=== PATIENT | female | born 1960 | race Caucasian/White ===

== ENCOUNTER 2022-05-30 09:37 | Day surgery (SDC) | payer BC ==
[~2022-05-30] VITALS: Ht 172.7 cm; Wt 158.8 kg
[2022-05-30] MEDS ORDERED: SEVOFLURANE 15 MIN GAS INH ONE (12:05)
[2022-05-30] MEDS ORDERED: PROPOFOL 200MG/ 20ML VIAL (DIPRIVAN) IV ONE (12:05)
[2022-05-30] MEDS ORDERED: SUCCINYLCHOLINE CHLORIDE 20 MG/ML(QUELICIN) IVP ONE (12:05)
[2022-05-30] MEDS ORDERED: ONDANSETRON HCL 4 MG/2 ML VIAL IVP ONE (12:05)
[2022-05-30] MEDS ORDERED: NS IRRIG SOLN 1000 ML IR ONE (12:05)
[2022-05-30] MEDS ORDERED: KETOROLAC TROMETHAMINE 30 MG VIAL IVP ONE (12:05)
[2022-05-30] MEDS ORDERED: LR 1,000 ML IV.SOLN IV ONE (12:05)
[2022-05-30] MEDS ORDERED: NS 1000 ML IV.SOLN IV ONE (12:05)
[2022-05-30] MEDS ORDERED: HYDROmorphone 1 MG/ML INJ. CARTRIDGE IVP PRN (13:00)
[2022-05-30] MEDS ORDERED: ONDANSETRON HCL 4 MG/2 ML VIAL IVP PRN (13:00)
[2022-05-30] MEDS ORDERED: LABETALOL 100 MG/ 20ML VIAL IVP PRN (13:00)
[2022-05-30] MEDS ORDERED: LR 500 ML IV SCH (13:00)
[2022-05-30] MEDS ORDERED: HYDROmorphone 1 MG/ML INJ. CARTRIDGE ONE (13:40)
[2022-05-30 16:41] VITALS: BP_SYST 144
== END 2022-05-30 16:15 | disposition home or self-care (01) ==
LOC: SDS 09:37 → SMU 09:40 → SDS 16:15
PROVIDERS: ATTEND Obstetrics & Gynecology
DX: N95.0 Postmenopausal bleeding (principal); E11.9 Type 2 diabetes mellitus without complications; Z90.89 Acquired absence of other organs; Z90.49 Acquired absence of other specified parts of digestive tract; Z88.1 Allergy status to other antibiotic agents; E66.01 Morbid (severe) obesity due to excess calories; Z79.899 Other long term (current) drug therapy; Z20.822 Contact with and (suspected) exposure to COVID-19
CPT/HCPCS: 36415 ×2; 58558; 87426; 82962; 82948; 88305; U0003; J1885; J2405; J2704; J0330; J1170; J7120; J7030